=== PATIENT | female | born 1960 | race Caucasian/White ===

== ENCOUNTER 2016-04-20 09:00 | Outpatient (RCR) | payer OTHER ==
[~2016-04-20 09:00] MED LIST: ADVAIR 250/28 DISKUS IH; ALBUTEROL0.09 MG/A1 IH; ALBUTEROL0.83 MG/ML IH; ASPI325T6 PO; ASPIRIN 32325 MG/TA1 PO; ASPIRIN 32325 MG/TAB PO; B-12500 MCG; BACTRIM DS 8001 TAB PO; BUDESONIDE1 POW; CALAN120 MG PO; CELEBREX 200MG200 MG PO; CIPRO 500MG TA500 MG PO; CIPRO HC OTIC S10 ML OT; CLEOCIN HC150 MG/CAP PO; CODIENE; CRESTOR5 MG PO; CYMBALTA; DILAUDID 2MG TAB2 MG PO; DIOVAN PO; ELITE MAGNESIUM1 TAB PO; EPIPEN1 MG/ML MR; ESTRACE0.1 MG/GM VG; FERROUS SU325 MG/TAB PO; FISH OIL CONC1000 MG PO; FLAXSEED OIL1000 MG PO; FLEXERIL 1010 MG/TAB PO; FLOVENT 110MCG7.9 GM; FLOVENT 110MCG7.9 GM IH; FOLIC ACID 11 MG/TA1 PO; FOLIC ACID0.4 MG PO; GLIPIZIDE XL10 MG PO; GLUCOPHAGE1000 MG PO; GLUCOTROL10 MG PO; HCTZ 25MG TAB25 MG PO; HCTZ 25MG25 MG PO; HCTZ12.5TAB PO; IMITREX 25MG TA25 MG PO; INVOKAMET1 PO; KEFLEX500 MG PO; LAMISIL1% TP; LASIX 20MG TABL20 MG PO; LEVAQUIN 5500 MG/TA1 PO; LIDODERM 5% PATC1 EA TP; LIPITOR20 MG PO; LORTAB 5/500 501 TAB PO; LORTAB 7.5/5001 TAB PO; MACRODANTIN50 MG/CA1 PO; MAG-OX 400400 MG/TAB PO; MASON NATURAL2000 IU PO; METFORMIN500 MG PO; METHOCARBAMOL500 MG PO; MOBIC 7.5MG7.5 MG PO; MULTIPLE VITAMI1 TAB PO; MULTIVITAMIN FO1 CAP PO; MVI; NAPROSYN500 MG PO; NEURONTIN100 MG/CAP PO; NORCO 325 MG-51 TAB PO; NORCO 325 MG-7.1 TAB PO; ONGLYZA5 MG PO; PERCOCET 325 MG1 TA2 PO; PHENERGAN 25 TA25 MG PO; PHENERGAN25 MG RC; PREDNISONE 5MG5 MG PO; PREDNISONE10 MG PO; PREDNISONE20 MG PO; PRILOSEC 20MG20 MG PO; PRILOSEC20 MG PO; PROMETH; SAVELLA50 MG PO; SEPTRA DS 8001 TAB PO; ULTRAM 50MG TAB50 MG PO; ULTRAM100 MG PO; ULTRAM50 MG; VALIUM 5MG T5 MG/TAB PO; VALIUM2 MG PO; VERAPAMIL120 MG/TA1 PO; VITAMIN C500 MG PO; VITAMIN D32000 IU PO; ZITHROMAX Z PA250 MG PO; ZOFRAN 4MG T4 MG/TAB PO; ZOFRAN ODT8 MG PO; ZOFRAN4 M1 PO; ZOLOFT25 MG PO
== END 2016-04-25 11:35 | disposition home or self-care (01) ==
LOC: WSPT 09:00
DX: Z96.642 Presence of left artificial hip joint (principal)

== ENCOUNTER → 2016-05-18 | Outpatient (CLI) | payer OTHER | LOC: MC.RAD 09:00 | DX: Z12.31 Encounter for screening mammogram for malignant neoplasm of breast (principal) ==

== ENCOUNTER → 2017-06-04 | Outpatient (CLI) | payer MEDICARE, OTHER | LOC: MC.RAD 08:00 | DX: Z12.31 Encounter for screening mammogram for malignant neoplasm of breast (principal) ==

== ENCOUNTER 2017-12-30 16:04 | Inpatient (IN) | payer MEDICARE, OTHER ==
[~2017-12-30] VITALS: Ht 165.1 cm; Wt 114.6 kg
[2018-02-03] VITALS (9 sets, daily range): BP systolic 97–129; BP diastolic 49–85; PULSE 52–66; TEMP 97.4–98.6
[2018-02-03 09:54] LABS: COLLECTION METHOD CATHETER
[2018-02-03 10:00] LABS: PH 6 (5-8); SQUAMOUS EPITHELIAL 0-2 /hpf; URINE APPEARANCE Clear; URINE BACTERIA None Seen /hpf; URINE BILIRUBIN Negative (NEGATIVE); URINE BLOOD Negative (NEGATIVE); URINE COLOR Colorless; URINE GLUCOSE Negative (NEGATIVE); URINE KETONE Negative (NEGATIVE); URINE LEUKOCYTE ESTERASE Negative (NEGATIVE); URINE NITRATE Negative (NEGATIVE); URINE PROTEIN(semi-quant) Negative (NEGATIVE); URINE RBC 0-2 /hpf; URINE UROBILINOGEN Negative (NEGATIVE); URINE WBC 0-2 /hpf
[2018-02-03] MEDS ORDERED: HUMIRA40 MG/0.8 SQ (11:10)
[2018-02-03] MEDS ORDERED: CYMBALTA 60MG60 MG PO (11:12)
[2018-02-04] VITALS (7 sets, daily range): BP systolic 80–114; BP diastolic 45–59; PULSE 65–76; TEMP 97.7–98.9
[2018-02-04] MEDS ORDERED: ASPIRIN 32325 MG/TA1 PO (06:31)
[2018-02-04] MEDS ORDERED: NORCO 325 MG-7.1 TAB PO (06:32)
[2018-02-04 06:44] LABS: HEMOGLOBIN 11.6 g/dl (12.5-16.0)
[2018-02-05 01:33] VITALS: BP 107/56; PULSE 67; TEMP 98.2
[2018-02-05 05:58] VITALS: BP 101/55; PULSE 70; TEMP 98.8
[2018-02-05 07:33] LABS: HEMOGLOBIN 11.4 g/dl (12.5-16.0)
[2018-02-05 08:00] VITALS: BP 97/46; PULSE 72; TEMP 98.6
[2018-02-05 11:07] VITALS: BP 113/54; PULSE 85; TEMP 98.8
== END 2018-02-05 14:05 | disposition home or self-care (01) | DRG 470 ==
LOC: JCC 02-03 08:57
PROVIDERS: Orthopaedic Surgery; Physician Assistant
PROC: 0SR902A Replacement of Right Hip Joint with Metal on Polyethylene Synthetic Substitute, Uncemented, Open Approach (ICD-10-PCS; principal; 2018-02-03 11:55)
DX: M16.11 Unilateral primary osteoarthritis, right hip (principal); Z68.41 Body mass index [BMI] 40.0-44.9, adult; M06.9 Rheumatoid arthritis, unspecified; M79.7 Fibromyalgia; E11.9 Type 2 diabetes mellitus without complications; J45.909 Unspecified asthma, uncomplicated; I10 Essential (primary) hypertension; Z87.891 Personal history of nicotine dependence; E66.8 Other obesity
CPT/HCPCS: A9284; C1713; C1776; J0690; J1885; J2250; J2274; J2704; J2765; J3010; J7030; J7120

== ENCOUNTER 2018-03-16 14:23 | Emergency (ER) | payer MEDICARE, OTHER ==
[~2018-03-16] VITALS: Ht 165.1 cm; Wt 113.6 kg
[~2018-03-16 14:23] MED LIST changes: +CYMBALTA 60MG60 MG PO; +HUMIRA40 MG/0.8 SQ
[2018-03-16] MEDS ORDERED: ACTOS 15MG TAB15 MG PO (14:39)
[2018-03-16] MEDS ORDERED: LASIX 20MG TABL20 MG PO (14:40)
[2018-03-16 14:57] VITALS: TEMP 98.3
[2018-03-16] MEDS ORDERED: CEPHALEXIN500 M1 PO (15:07)
[2018-03-16 16:07] VITALS: BP 107/84; PULSE 67
== END 2018-03-16 16:11 | disposition home or self-care (01) ==
LOC: COL.ER 14:23
DX: T81.40XA Infection following a procedure, unspecified, initial encounter (principal); E11.9 Type 2 diabetes mellitus without complications; E78.5 Hyperlipidemia, unspecified; I10 Essential (primary) hypertension; Z79.82 Long term (current) use of aspirin; Z79.84 Long term (current) use of oral hypoglycemic drugs; Z98.890 Other specified postprocedural states

== ENCOUNTER 2018-05-01 13:30 | Outpatient (RCR) | payer MEDICARE, OTHER ==
[~2018-05-01 13:30] MED LIST changes: +ACTOS 15MG TAB15 MG PO; +CEPHALEXIN500 M1 PO
== END 2018-05-08 | disposition still patient (30) ==
LOC: WSPT
DX: Z47.1 Aftercare following joint replacement surgery (principal); Z96.641 Presence of right artificial hip joint
CPT/HCPCS: G8978-GP; G8979-GP

== ENCOUNTER → 2018-07-08 | Outpatient (CLI) | payer MEDICARE, OTHER | LOC: MC.RAD 06-06 13:15 | DX: Z12.31 Encounter for screening mammogram for malignant neoplasm of breast (principal) ==

== ENCOUNTER 2018-11-14 12:59 | Emergency (ER) | payer MEDICARE, OTHER ==
[~2018-11-14] VITALS: Ht 165.1 cm; Wt 132.1 kg
[2018-11-14 13:42] VITALS: TEMP 98.8
[2018-11-14] MEDS ORDERED: FLEXERIL 1010 MG/TAB PO (16:27)
[2018-11-14 16:35] VITALS: BP 120/61; PULSE 63
== END 2018-11-14 16:40 | disposition home or self-care (01) ==
LOC: COL.ER 12:59
DX: M54.6 Pain in thoracic spine (principal); M79.7 Fibromyalgia; E78.5 Hyperlipidemia, unspecified; E66.9 Obesity, unspecified; Z90.710 Acquired absence of both cervix and uterus; Z79.82 Long term (current) use of aspirin; Z95.9 Presence of cardiac and vascular implant and graft, unspecified; Z68.42 Body mass index [BMI] 45.0-49.9, adult
CPT/HCPCS: J1885; J2270; J2405

== ENCOUNTER → 2018-11-25 | Outpatient (CLI) | payer MEDICARE, OTHER | LOC: COL.VAS 09:04 | DX: M79.605 Pain in left leg (principal) ==

== ENCOUNTER → 2019-07-22 | Outpatient (CLI) | payer MEDICARE, OTHER | LOC: MC.RAD 17:45 | DX: Z12.31 Encounter for screening mammogram for malignant neoplasm of breast (principal) ==

== ENCOUNTER 2019-08-07 06:37 | Day surgery (SDC) | payer MEDICARE, OTHER ==
[~2019-08-07] VITALS: Ht 165.1 cm; Wt 134.5 kg
[~2019-08-07 06:37] MED LIST changes: -ACTOS 15MG TAB15 MG PO; +ACTOS 45MG45 MG/TAB PO; -MAG-OX 400400 MG/TAB PO; +MAGNESIUM250 M1 PO; -VITAMIN D32000 IU PO; +VITAMIND3 5000 PO
[2019-08-07] MEDS ORDERED: CLEOCIN HCL300 MG PO (07:08)
[2019-08-07] MEDS ORDERED: ASPIRIN 81M81 MG/TA2 PO (07:10)
[2019-08-07] MEDS ORDERED: LIPITOR20 MG PO (07:11)
[2019-08-07] MEDS ORDERED: LEXAPRO20 MG PO (07:15)
[2019-08-07] MEDS ORDERED: VITAMINE200 PO (07:16)
[2019-08-07] MEDS ORDERED: PHARMASSURE ZIN50 MG PO (07:16)
[2019-08-07] MEDS ORDERED: TURMERIC500 MG PO (07:16)
[2019-08-07] MEDS ORDERED: NATURE'S BLEND600 M2 PO (07:17)
[2019-08-07] MEDS ORDERED: B-12 500 MCG PO (07:17)
[2019-08-07 07:30] VITALS: BP 123/66; PULSE 64; TEMP 97.7
--- NOTE | 2019-08-07 08:10 | NUR ---
Dr Bacon into see patient's spouse at this time to go over procedure results.
[2019-08-07 08:15] VITALS: BP 106/60; PULSE 61; TEMP 98.2
--- NOTE | 2019-08-07 08:15 | NUR ---
Patient arrives back to [facility] [place], denies pain or nausea. Patient ambulated with standby assist x2 from cart to chair without any difficulties or complications. Patient's spouse at bedside. Patient monitor applied, vitals stable.
--- NOTE | 2019-08-07 08:20 | NUR ---
Patient given water and muffins at this time.
[2019-08-07 08:30] VITALS: BP 112/68; PULSE 66
--- NOTE | 2019-08-07 08:30 | NUR ---
Patient tolerating food and drink without any nausea. Vitals stable.
[2019-08-07 08:45] VITALS: BP 103/62; PULSE 56
--- NOTE | 2019-08-07 08:45 | NUR ---
Patient reports she feels good and is ready to go home. Vitals stable.
--- NOTE | 2019-08-07 08:55 | NUR ---
Dismissal instructions gone over with patient and patient's spouse. Both verbalize understanding and all questions answered.
--- NOTE | 2019-08-07 09:05 | NUR ---
Patient discharged to home private vehicle via wheelchair. Patient's spouse is driving. Patient and spouse leave thanking staff for services.
== END 2019-08-07 09:05 | disposition home or self-care (01) ==
LOC: SDCO 06:37
DX: Z12.11 Encounter for screening for malignant neoplasm of colon (principal); E11.9 Type 2 diabetes mellitus without complications; I10 Essential (primary) hypertension; E78.00 Pure hypercholesterolemia, unspecified; G47.33 Obstructive sleep apnea (adult) (pediatric); J45.909 Unspecified asthma, uncomplicated; Z79.4 Long term (current) use of insulin; Z79.899 Other long term (current) drug therapy; Z79.82 Long term (current) use of aspirin; Z88.0 Allergy status to penicillin; Z88.8 Allergy status to other drugs, medicaments and biological substances; M06.9 Rheumatoid arthritis, unspecified; E66.01 Morbid (severe) obesity due to excess calories; Z68.42 Body mass index [BMI] 45.0-49.9, adult; Z82.3 Family history of stroke; Z82.49 Family history of ischemic heart disease and other diseases of the circulatory system; Z88.1 Allergy status to other antibiotic agents; Z88.2 Allergy status to sulfonamides; Z87.891 Personal history of nicotine dependence; F32.9 Major depressive disorder, single episode, unspecified; M79.7 Fibromyalgia
CPT/HCPCS: J2704; J7030

== ENCOUNTER 2019-11-27 23:50 | Emergency (ER) | payer MEDICARE, OTHER ==
[~2019-11-27] VITALS: Ht 165.1 cm; Wt 140.9 kg
[~2019-11-27 23:50] MED LIST changes: +ASPIRIN 81M81 MG/TA2 PO; +B-12 500 MCG PO; +CLEOCIN HCL300 MG PO; +LEXAPRO20 MG PO; +NATURE'S BLEND600 M2 PO; +PHARMASSURE ZIN50 MG PO; +TURMERIC500 MG PO; +VITAMINE200 PO
[2019-11-27 23:55] VITALS: BP 126/80; TEMP 96.4
[2019-11-28] MEDS ORDERED: FLEXERIL5 MG PO (01:08)
[2019-11-28 01:15] VITALS: PULSE 78
== END 2019-11-28 01:15 | disposition home or self-care (01) ==
LOC: COL.ER 23:50
DX: S96.912A Strain of unspecified muscle and tendon at ankle and foot level, left foot, initial encounter (principal); I10 Essential (primary) hypertension; E11.9 Type 2 diabetes mellitus without complications; Z88.0 Allergy status to penicillin; Z88.2 Allergy status to sulfonamides; Z88.6 Allergy status to analgesic agent; Z88.1 Allergy status to other antibiotic agents; Z79.84 Long term (current) use of oral hypoglycemic drugs; Z79.82 Long term (current) use of aspirin; W19.XXXA Unspecified fall, initial encounter; Y92.009 Unspecified place in unspecified non-institutional (private) residence as the place of occurrence of the external cause

== ENCOUNTER 2020-03-17 13:01 | Outpatient (RCR) | payer MEDICARE, OTHER ==
[~2020-03-17 13:01] MED LIST changes: +COREG 3.123.125 MG/T PO; +FLEXERIL5 MG PO; +LASIX 40MG TABL40 MG PO; +OXYGEN; +PROAIR HFA0.09 MG/AC IH
[2020-06-08] MEDS ORDERED: MASON NATURAL2000 IU PO (08:44)
[2020-06-08] MEDS ORDERED: NATURAL MAGNES200 MG PO (08:50)
[2020-06-08] MEDS ORDERED: ACTOS 45MG45 MG/TAB PO (08:56)
[2020-06-08] MEDS ORDERED: ALDACTONE 25MG25 M1 PO (08:57)
[2020-06-08] MEDS ORDERED: ANORO IH (08:58)
[2020-06-10] MEDS ORDERED: ZITHROMAX Z PA250 MG PO (10:33)
[2020-06-10] MEDS ORDERED: PREDNISONE50 MG PO (10:50)
== END 2020-06-15 | disposition home or self-care (01) ==
LOC: WSPT
DX: M19.90 Unspecified osteoarthritis, unspecified site (principal); E66.9 Obesity, unspecified; I50.9 Heart failure, unspecified

== ENCOUNTER → 2020-05-19 | Outpatient (CLI) | payer MEDICARE, OTHER ==
[~2020-05-19] MED LIST changes: +ADULT MULTIVIT1 EACH PO; +ALDACTONE 25MG25 M1 PO; +ANORO IH; +FOLIC ACID 40400 MCG; +GLUCOPHAGE XR500 M1 PO; +LEADER CLE17 GM/Dose PO; +MYRBETR50MG PO; +NATURAL IRON65 MG; +NATURAL MAGNES200 MG PO; +ORENCIA CL125 MG/1 M SQ; +PREDNISONE50 MG PO; +PRIL40 PO; +PROTONIX 40MG T40 MG PO; +TOUJEO300 U/ML SQ
[2020-05-19 13:05] LABS: CALCIUM 9.3 mg/dL (8.4-10.2); CREATININE, serum 0.53 (0.52-1.25); POTASSIUM 4.2 mmol/L (3.4-5.0)
== END ==
LOC: COL.RAD 12:13
PROVIDERS: Physician Assistant
DX: R04.2 Hemoptysis (principal); E11.9 Type 2 diabetes mellitus without complications
CPT/HCPCS: Q9967

== ENCOUNTER 2020-06-08 07:04 | Day surgery (SDC) | payer MEDICARE, OTHER ==
[~2020-06-08] VITALS: Ht 165.1 cm; Wt 151.4 kg
[~2020-06-08 07:04] MED LIST changes: -ADULT MULTIVIT1 EACH PO; -ALDACTONE 25MG25 M1 PO; -ANORO IH; -FOLIC ACID 40400 MCG; -GLUCOPHAGE XR500 M1 PO; -LEADER CLE17 GM/Dose PO; -MYRBETR50MG PO; -NATURAL IRON65 MG; -NATURAL MAGNES200 MG PO; -ORENCIA CL125 MG/1 M SQ; -PREDNISONE50 MG PO; -PRIL40 PO; -PROTONIX 40MG T40 MG PO; -TOUJEO300 U/ML SQ
[2020-06-08] MEDS ORDERED: MASON NATURAL2000 IU PO (08:44)
[2020-06-08] MEDS ORDERED: NATURAL MAGNES200 MG PO (08:50)
[2020-06-08] MEDS ORDERED: ACTOS 45MG45 MG/TAB PO (08:56)
[2020-06-08] MEDS ORDERED: ALDACTONE 25MG25 M1 PO (08:57)
[2020-06-08] MEDS ORDERED: ANORO IH (08:58)
[2020-06-08 09:15] VITALS: BP 91/48; PULSE 58; TEMP 98.5
[2020-06-08 09:30] VITALS: BP 93/41; PULSE 56
[2020-06-08 09:45] VITALS: BP 99/51; PULSE 58
--- NOTE | 2020-06-08 11:05 | NUR ---
0915 Pt returns from Endo procedure via cart and this RN. Pt on O2 2L via NC. Pt returns to [facility] [place] [address]. Monitors on and alarms set. Call light within reach. Pt's present in room. Pt requests water only. This brought for pt. Pt alert and oriented and stating "I'm ready to go." 0930 Pt taking drink well. No complaints voiced by pt. 0957 Pt ambulates to restroom with RN assist. 1000 Pt returns to [place] [id number] having voided. Pt had soiled pants due to coughing. Pt asks to travel home and return with replacement pants and the hospital didn't have appropriate pants for the pt. 1030 Discharge instructions reviewed in detail with pt. Review lab values from previous visit. Handed to pt are a thank you card and discharge instructions. All questions answered to pt's satisfaction. 1044 Pt's returns with pants, and pt dresses self with assisting. 1105 Transfer pt out of hospital via wheelchair and this RN assist to private vehicle driven by .
[2020-06-08 14:18] VITALS: BP 133/86; PULSE 60; TEMP 98
[2020-06-08 18:29] VITALS: BP 86/50; PULSE 56
== END 2020-06-08 11:05 | disposition home or self-care (01) ==
LOC: SDCO 07:04
DX: R04.2 Hemoptysis (principal); R09.02 Hypoxemia; J44.9 Chronic obstructive pulmonary disease, unspecified; E11.9 Type 2 diabetes mellitus without complications; I11.0 Hypertensive heart disease with heart failure; I50.9 Heart failure, unspecified; G47.33 Obstructive sleep apnea (adult) (pediatric); M79.7 Fibromyalgia; E78.5 Hyperlipidemia, unspecified; M19.90 Unspecified osteoarthritis, unspecified site; F32.9 Major depressive disorder, single episode, unspecified; Z99.89 Dependence on other enabling machines and devices; Z20.822 Contact with and (suspected) exposure to COVID-19; Z79.84 Long term (current) use of oral hypoglycemic drugs; Z88.8 Allergy status to other drugs, medicaments and biological substances; Z88.2 Allergy status to sulfonamides; Z88.0 Allergy status to penicillin; Z88.1 Allergy status to other antibiotic agents; Z87.891 Personal history of nicotine dependence; Z79.899 Other long term (current) drug therapy; Z79.82 Long term (current) use of aspirin
CPT/HCPCS: J2704; J7030

== ENCOUNTER 2020-06-10 07:20 | Emergency (ER) | payer MEDICARE, OTHER ==
[~2020-06-10] VITALS: Ht 167.6 cm; Wt 150.0 kg
[~2020-06-10 07:20] MED LIST changes: +ALDACTONE 25MG25 M1 PO; +ANORO IH; +NATURAL MAGNES200 MG PO
[2020-06-10 07:29] VITALS: TEMP 97.5
[2020-06-10 08:20] LABS: BASO % 0.6 % (0.0-2.0); EOS # 0.2 (0.0-0.7); EOS % 4.1 % (0-4.0); GRAN % 62.7 % (42.2-75.2); HEMATOCRIT 45.3 % (37.0-47.0); HEMOGLOBIN 13.6 g/dl (12.5-16.0); LYMPH # 1.1 (1.2-3.4); LYMPH % 22.3 % (20.0-51.0); MEAN CELL VOLUME 93 fl (80.0-100.0); MEAN CORPUSCULAR HEMOGLOBIN 28 pg (27.0-31.0); MEAN CORPUSCULAR HGB CONC 30 g/dl (33.0-37.0); MEAN PLATELET VOLUME 11.1 fl (7.4-10.4); MONO # 0.5 (0.1-0.6); MONO % 9.7 % (1.7-9.3); PLATELET COUNT 207 K/mm3 (130-400); RED BLOOD COUNT 4.87 M/mm3 (4.10-5.30)
[2020-06-10 08:35] LABS: ALANINE AMINOTRANSFERASE 24 U/L (4-34); ALBUMIN 4.1 gm/dL (3.5-5.0); ALKALINE PHOSPHATASE 66 U/L (50-136); ANION GAP 7 mmol/L (7-16); AST,SGOT 25 U/L (15-37); BILIRUBIN,TOTAL 0.6 mg/dL (0.0-1.0); BLOOD UREA NITROGEN 11 mg/dL (7-17); CALCIUM 8.9 mg/dL (8.4-10.2); CARBON DIOXIDE 31 mmol/L (22-30); CHLORIDE 102 mmol/L (98-107); CREATININE, serum 0.45 (0.52-1.25); GLUCOSE 151 mg/dL (74-106); LIPASE 121 U/L (23-300); POTASSIUM 4.3 mmol/L (3.4-5.0); SODIUM 140 mmol/L (137-145)
[2020-06-10 08:48] LABS: TROPONIN-I < 0.012 ng/mL (0.000-0.035)
[2020-06-10 09:15] LABS: COLLECTION METHOD CLEAN CATCH
[2020-06-10 09:22] LABS: MUCOUS Present /lpf; PH 6 (5-8); SQUAMOUS EPITHELIAL 0-2 /hpf; URINE APPEARANCE Clear; URINE BACTERIA None Seen /hpf; URINE BILIRUBIN Negative (NEGATIVE); URINE BLOOD Negative (NEGATIVE); URINE COLOR Yellow; URINE GLUCOSE Negative (NEGATIVE); URINE KETONE Negative (NEGATIVE); URINE LEUKOCYTE ESTERASE Negative (NEGATIVE); URINE NITRATE Negative (NEGATIVE); URINE PROTEIN(semi-quant) Negative (NEGATIVE); URINE RBC None Seen /hpf; URINE UROBILINOGEN Negative (NEGATIVE)
[2020-06-10] MEDS ORDERED: ZITHROMAX Z PA250 MG PO (10:33)
[2020-06-10 10:49] VITALS: BP 131/62; PULSE 60
[2020-06-10] MEDS ORDERED: PREDNISONE50 MG PO (10:50)
== END 2020-06-10 10:54 | disposition home or self-care (01) ==
LOC: COL.ER 07:20
PROVIDERS: Emergency Medicine
DX: J96.01 Acute respiratory failure with hypoxia (principal); R55 Syncope and collapse; R04.2 Hemoptysis; E11.9 Type 2 diabetes mellitus without complications; I10 Essential (primary) hypertension; E78.5 Hyperlipidemia, unspecified; F32.9 Major depressive disorder, single episode, unspecified; Z88.0 Allergy status to penicillin; Z88.2 Allergy status to sulfonamides; Z88.8 Allergy status to other drugs, medicaments and biological substances; Z88.1 Allergy status to other antibiotic agents; Z79.84 Long term (current) use of oral hypoglycemic drugs
CPT/HCPCS: Q9967

== ENCOUNTER → 2020-06-29 | Outpatient (CLI) | payer MEDICARE, OTHER ==
[~2020-06-29] MED LIST changes: +ADULT MULTIVIT1 EACH PO; +FOLIC ACID 40400 MCG; +GLUCOPHAGE XR500 M1 PO; +LEADER CLE17 GM/Dose PO; +MYRBETR50MG PO; +NATURAL IRON65 MG; +ORENCIA CL125 MG/1 M SQ; +PREDNISONE50 MG PO; +PRIL40 PO; +PROTONIX 40MG T40 MG PO; +TOUJEO300 U/ML SQ
== END ==
LOC: COL.RAD 12:23
DX: R04.2 Hemoptysis (principal)
CPT/HCPCS: Q9967

== ENCOUNTER 2020-07-14 12:00 | Outpatient (RCR) | payer MEDICARE, OTHER ==
[~2020-07-14 12:00] MED LIST changes: -ADULT MULTIVIT1 EACH PO; -FOLIC ACID 40400 MCG; -GLUCOPHAGE XR500 M1 PO; -LEADER CLE17 GM/Dose PO; -MYRBETR50MG PO; -NATURAL IRON65 MG; -ORENCIA CL125 MG/1 M SQ; -PRIL40 PO; -PROTONIX 40MG T40 MG PO; -TOUJEO300 U/ML SQ
== END 2020-07-15 09:46 | disposition home or self-care (01) ==
LOC: WSPT 12:00
DX: I50.9 Heart failure, unspecified (principal); E66.9 Obesity, unspecified; M19.90 Unspecified osteoarthritis, unspecified site

== ENCOUNTER 2020-08-17 08:36 | Outpatient (RCR) | payer MEDICARE, OTHER | END 2020-08-22 11:51 | disposition home or self-care (01) | LOC: WSPT 08:36 | DX: M17.11 Unilateral primary osteoarthritis, right knee (principal) ==

== ENCOUNTER → 2020-08-29 | Outpatient (CLI) | payer MEDICARE, OTHER ==
[~2020-08-29] MED LIST changes: +ADULT MULTIVIT1 EACH PO; +FOLIC ACID 40400 MCG; +GLUCOPHAGE XR500 M1 PO; +LEADER CLE17 GM/Dose PO; +MYRBETR50MG PO; +NATURAL IRON65 MG; +ORENCIA CL125 MG/1 M SQ; +PRIL40 PO; +PROTONIX 40MG T40 MG PO; +TOUJEO300 U/ML SQ
== END ==
LOC: COL.VAS 10:00
DX: Z13.6 Encounter for screening for cardiovascular disorders (principal); M79.661 Pain in right lower leg; M79.89 Other specified soft tissue disorders; Z96.651 Presence of right artificial knee joint

== ENCOUNTER 2020-08-30 11:37 | Emergency (ER) | payer MEDICARE, OTHER ==
[~2020-08-30] VITALS: Ht 165.1 cm; Wt 154.1 kg
[~2020-08-30 11:37] MED LIST changes: -ADULT MULTIVIT1 EACH PO; -FOLIC ACID 40400 MCG; -GLUCOPHAGE XR500 M1 PO; -LEADER CLE17 GM/Dose PO; -MYRBETR50MG PO; -NATURAL IRON65 MG; -ORENCIA CL125 MG/1 M SQ; -PRIL40 PO; -PROTONIX 40MG T40 MG PO; -TOUJEO300 U/ML SQ
[2020-08-30 11:59] VITALS: TEMP 98.4
[2020-08-30] MEDS ORDERED: NATURAL IRON65 MG (12:14)
[2020-08-30] MEDS ORDERED: FOLIC ACID 40400 MCG (12:14)
[2020-08-30 12:33] LABS: BASO # 0.1 (0.0-0.2); EOS # 0.5 (0.0-0.7); EOS % 7.8 % (0-4.0); GRAN # 3.7 (1.4-6.5); GRAN % 63.6 % (42.2-75.2); HEMATOCRIT 38.4 % (37.0-47.0); HEMOGLOBIN 12.1 g/dl (12.5-16.0); LYMPH # 1.2 (1.2-3.4); LYMPH % 19.6 % (20.0-51.0); MEAN CELL VOLUME 91 fl (80.0-100.0); MEAN CORPUSCULAR HEMOGLOBIN 29 pg (27.0-31.0); MEAN CORPUSCULAR HGB CONC 32 g/dl (33.0-37.0); MEAN PLATELET VOLUME 10.6 fl (7.4-10.4); MONO # 0.4 (0.1-0.6); MONO % 7.5 % (1.7-9.3); PLATELET COUNT 276 K/mm3 (130-400); RED BLOOD COUNT 4.24 M/mm3 (4.10-5.30); REDCELL DISTRIBUTION WIDTH-CV 16.3 % (11.5-14.5)
[2020-08-30 12:44] LABS: INR 1.2 (0.8-3.0); PROTHROMBIN TIME 13.1 SECONDS (9.7-12.8)
[2020-08-30 12:46] LABS: ALBUMIN 3.7 gm/dL (3.5-5.0); CALCIUM 9.1 mg/dL (8.4-10.2); CREATININE, serum 0.39 (0.52-1.25); POTASSIUM 3.7 mmol/L (3.4-5.0); TOTAL PROTEIN 7.2 gm/dL (6.4-8.2)
[2020-08-30 12:57] LABS: TROPONIN-I 0.012 ng/mL (0.000-0.035)
--- NOTE | 2020-08-30 14:44 | NUR ---
[employer] responded to consult in the ED and met with patient and her , Ming. Patient lives in [place] with Ming and sees Dr. Patricio for primary care. Patient reports she had knee surgery last week and was discharged home with outpatient PT set up at [facility] on [address]. Patient expressed frustration as she had appointments with Dr. Patricio and Dr. Gomez today and she advised that they wanted her to come into the ED to have fluid removed. Patient states she has congestive heart failure and knows that she has too much fluid. Patient expressed frustration that she will not be admitted. SW asked patient if she felt comfortable returning home. Patient states no but also stated she is not going to any facility. Patient states she has everything she needs at home and her , Ming is her nurse. SW offered Home Health services however patient declined stating that she feels she can care for herself at home with the help of her . Patient is wearing oxygen and advised she has home oxygen through [facility]. Patient again states if they won't admit her she is ready to just go home. MARCELLE collaborated the above to Vanessa RECINOS.
[2020-08-30] MEDS ORDERED: CEPHALEXIN500 M1 PO (14:49)
[2020-08-30 14:55] VITALS: BP 118/58; PULSE 78
== END 2020-08-30 15:12 | disposition home or self-care (01) ==
LOC: COL.ER 11:37
PROVIDERS: Family Medicine
DX: J96.01 Acute respiratory failure with hypoxia (principal); R55 Syncope and collapse; M79.606 Pain in leg, unspecified; I10 Essential (primary) hypertension; E78.5 Hyperlipidemia, unspecified; Z79.84 Long term (current) use of oral hypoglycemic drugs; Z79.899 Other long term (current) drug therapy

== ENCOUNTER 2020-09-01 12:39 | Emergency (ER) | payer MEDICARE, OTHER ==
[~2020-09-01] VITALS: Ht 160 cm; Wt 150.0 kg
[~2020-09-01 12:39] MED LIST changes: +FOLIC ACID 40400 MCG; +NATURAL IRON65 MG
[2020-09-01 12:43] VITALS: TEMP 97.7
[2020-09-01 13:19] LABS: BASO # 0.1 (0.0-0.2); BASO % 0.9 % (0.0-2.0); EOS # 0.5 (0.0-0.7); EOS % 8.1 % (0-4.0); GRAN # 4.1 (1.4-6.5); GRAN % 64.3 % (42.2-75.2); HEMATOCRIT 38.3 % (37.0-47.0); HEMOGLOBIN 11.9 g/dl (12.5-16.0); LYMPH # 1.2 (1.2-3.4); LYMPH % 18.8 % (20.0-51.0); MEAN CELL VOLUME 91 fl (80.0-100.0); MEAN CORPUSCULAR HEMOGLOBIN 28 pg (27.0-31.0); MEAN CORPUSCULAR HGB CONC 31 g/dl (33.0-37.0); MEAN PLATELET VOLUME 10.4 fl (7.4-10.4); MONO # 0.5 (0.1-0.6); MONO % 7.4 % (1.7-9.3); PLATELET COUNT 284 K/mm3 (130-400); REDCELL DISTRIBUTION WIDTH-CV 16.4 % (11.5-14.5)
[2020-09-01 13:31] LABS: COLLECTION METHOD CLEAN CATCH
[2020-09-01 13:32] LABS: ALANINE AMINOTRANSFERASE 35 U/L (4-34); ALBUMIN 3.8 gm/dL (3.5-5.0); ALKALINE PHOSPHATASE 76 U/L (50-136); ANION GAP 5 mmol/L (7-16); AST,SGOT 59 U/L (15-37); BILIRUBIN,TOTAL 0.9 mg/dL (0.0-1.0); BLOOD UREA NITROGEN 11 mg/dL (7-17); CARBON DIOXIDE 33 mmol/L (22-30); CHLORIDE 98 mmol/L (98-107); CREATININE, serum 0.41 (0.52-1.25); GLUCOSE 276 mg/dL (74-106); SODIUM 136 mmol/L (137-145); TOTAL PROTEIN 7.4 gm/dL (6.4-8.2)
[2020-09-01 13:36] LABS: MUCOUS Present /lpf; PH 7 (5-8); SQUAMOUS EPITHELIAL 0-2 /hpf; URINE APPEARANCE Hazy; URINE BACTERIA None Seen /hpf; URINE BILIRUBIN Negative (NEGATIVE); URINE BLOOD Negative (NEGATIVE); URINE COLOR Yellow; URINE GLUCOSE 2+ (NEGATIVE); URINE KETONE Negative (NEGATIVE); URINE LEUKOCYTE ESTERASE Negative (NEGATIVE); URINE NITRATE Negative (NEGATIVE); URINE PROTEIN(semi-quant) Negative (NEGATIVE); URINE RBC 0-2 /hpf; URINE UROBILINOGEN Negative (NEGATIVE)
[2020-09-01 13:44] LABS: TROPONIN-I < 0.012 ng/mL (0.000-0.035)
[2020-09-01 14:29] LABS: LIPASE 115 U/L (23-300)
[2020-09-01 16:01] VITALS: BP 163/94; PULSE 88
== END 2020-09-01 16:20 | disposition home or self-care (01) ==
LOC: COL.ER 12:39
PROVIDERS: Emergency Medicine
DX: J96.01 Acute respiratory failure with hypoxia (principal); M79.604 Pain in right leg; E11.9 Type 2 diabetes mellitus without complications; I10 Essential (primary) hypertension; E78.5 Hyperlipidemia, unspecified; Z88.8 Allergy status to other drugs, medicaments and biological substances; Z88.0 Allergy status to penicillin; Z88.1 Allergy status to other antibiotic agents; Z79.84 Long term (current) use of oral hypoglycemic drugs; Z79.899 Other long term (current) drug therapy; Z20.822 Contact with and (suspected) exposure to COVID-19

== ENCOUNTER 2020-10-30 12:26 | Inpatient (IN) | payer MEDICARE, OTHER ==
[~2020-10-30] VITALS: Ht 165.1 cm; Wt 142.7 kg
[2020-10-30] MEDS ORDERED: LASIX 20MG TABL20 MG PO (12:46)
[2020-10-30] MEDS ORDERED: ASPIRIN 81M81 MG/TA2 PO (13:10)
[2020-10-30 13:51] LABS: BASO % 0.5 % (0.0-2.0); EOS # 0.2 (0.0-0.7); EOS % 3.1 % (0-4.0); GRAN # 4.5 (1.4-6.5); HEMATOCRIT 45.9 % (37.0-47.0); HEMOGLOBIN 14.6 g/dl (12.5-16.0); LYMPH # 0.9 (1.2-3.4); LYMPH % 14.5 % (20.0-51.0); MEAN CELL VOLUME 90 fl (80.0-100.0); MEAN CORPUSCULAR HEMOGLOBIN 29 pg (27.0-31.0); MEAN CORPUSCULAR HGB CONC 32 g/dl (33.0-37.0); MEAN PLATELET VOLUME 11.9 fl (7.4-10.4); MONO # 0.5 (0.1-0.6); MONO % 7.6 % (1.7-9.3); PLATELET COUNT 242 K/mm3 (130-400); RED BLOOD COUNT 5.09 M/mm3 (4.10-5.30); REDCELL DISTRIBUTION WIDTH-CV 15.3 % (11.5-14.5)
[2020-10-30 13:58] LABS: ALANINE AMINOTRANSFERASE 84 U/L (4-34); ALBUMIN 4.2 gm/dL (3.5-5.0); ALKALINE PHOSPHATASE 112 U/L (50-136); ANION GAP 9 mmol/L (7-16); AST,SGOT 126 U/L (15-37); BILIRUBIN,TOTAL 0.9 mg/dL (0.0-1.0); BLOOD UREA NITROGEN 7 mg/dL (7-17); CALCIUM 8.9 mg/dL (8.4-10.2); CARBON DIOXIDE 28 mmol/L (22-30); CHLORIDE 97 mmol/L (98-107); CREATININE, serum 0.43 (0.52-1.25); GLUCOSE 344 mg/dL (74-106); POTASSIUM 3.9 mmol/L (3.4-5.0); SODIUM 134 mmol/L (137-145)
[2020-10-30 14:11] LABS: TROPONIN-I < 0.012 ng/mL (0.000-0.035)
[2020-10-30 14:55] LABS: LIPASE 17088 U/L (23-300)
[2020-10-30] MEDS ORDERED: ORENCIA CL125 MG/1 M SQ (18:59)
[2020-10-30 20:03] VITALS: BP 110/56; PULSE 76; TEMP 98.6
[2020-10-30 23:53] VITALS: BP 125/77; PULSE 95; TEMP 98.3
[2020-10-31 04:12] VITALS: BP 134/62; PULSE 77; TEMP 98.3
[2020-10-31 07:43] LABS: CHOLESTEROL RISK RATIO 4.9
[2020-10-31 08:24] VITALS: BP 123/75; PULSE 80; TEMP 98.1
[2020-10-31 10:20] LABS: COLLECTION METHOD CATHETER
[2020-10-31 10:38] LABS: AMORPHOUS CRYSTAL Present /uL; MUCOUS Present /lpf; PH 5 (5-8); URINE APPEARANCE Turbid; URINE BACTERIA None Seen /hpf; URINE BILIRUBIN Negative (NEGATIVE); URINE BLOOD Negative (NEGATIVE); URINE COLOR Amber; URINE GLUCOSE 1+ (NEGATIVE); URINE KETONE Trace (NEGATIVE); URINE LEUKOCYTE ESTERASE Negative (NEGATIVE); URINE NITRATE Negative (NEGATIVE); URINE PROTEIN(semi-quant) 1+ (NEGATIVE); URINE UROBILINOGEN Negative (NEGATIVE)
[2020-10-31 11:05] LABS: BASO % 0.6 % (0.0-2.0); EOS # 0.2 (0.0-0.7); EOS % 4.1 % (0-4.0); GRAN # 3.8 (1.4-6.5); GRAN % 70.6 % (42.2-75.2); HEMATOCRIT 44.3 % (37.0-47.0); HEMOGLOBIN 13.5 g/dl (12.5-16.0); LYMPH # 0.9 (1.2-3.4); LYMPH % 16.8 % (20.0-51.0); MEAN CELL VOLUME 94 fl (80.0-100.0); MEAN CORPUSCULAR HEMOGLOBIN 29 pg (27.0-31.0); MEAN CORPUSCULAR HGB CONC 31 g/dl (33.0-37.0); MEAN PLATELET VOLUME 12.1 fl (7.4-10.4); MONO # 0.4 (0.1-0.6); MONO % 7.7 % (1.7-9.3); PLATELET COUNT 207 K/mm3 (130-400); RED BLOOD COUNT 4.73 M/mm3 (4.10-5.30); REDCELL DISTRIBUTION WIDTH-CV 15.5 % (11.5-14.5)
[2020-10-31 11:09] LABS: ALBUMIN 3.8 gm/dL (3.5-5.0); BILIRUBIN,TOTAL 0.4 mg/dL (0.0-1.0); CALCIUM 8.6 mg/dL (8.4-10.2); CREATININE, serum 0.41 (0.52-1.25); POTASSIUM 3.7 mmol/L (3.4-5.0); TOTAL PROTEIN 6.8 gm/dL (6.4-8.2)
[2020-10-31 12:15] VITALS: BP 109/58; PULSE 75; TEMP 98.1
[2020-10-31 16:17] VITALS: BP 113/62; PULSE 85; TEMP 98.1
[2020-10-31] MEDS ORDERED: MYRBETR50MG PO (18:40)
[2020-10-31] MEDS ORDERED: GLUCOPHAGE XR500 M1 PO (18:41)
[2020-10-31 21:26] VITALS: BP 134/75; PULSE 74; TEMP 98.3
[2020-10-31 23:53] VITALS: BP 129/43; PULSE 80; TEMP 98.4
[2020-11-01 04:09] VITALS: BP 130/69; PULSE 85; TEMP 97.9
[2020-11-01 07:30] LABS: BASO % 0.6 % (0.0-2.0); EOS # 0.3 (0.0-0.7); EOS % 5.3 % (0-4.0); GRAN # 3.1 (1.4-6.5); GRAN % 64.7 % (42.2-75.2); HEMATOCRIT 42.4 % (37.0-47.0); LYMPH % 21.4 % (20.0-51.0); MEAN CELL VOLUME 92 fl (80.0-100.0); MEAN CORPUSCULAR HEMOGLOBIN 28 pg (27.0-31.0); MEAN CORPUSCULAR HGB CONC 31 g/dl (33.0-37.0); MEAN PLATELET VOLUME 11.4 fl (7.4-10.4); MONO # 0.4 (0.1-0.6); MONO % 7.8 % (1.7-9.3); PLATELET COUNT 201 K/mm3 (130-400); RED BLOOD COUNT 4.61 M/mm3 (4.10-5.30); REDCELL DISTRIBUTION WIDTH-CV 15.5 % (11.5-14.5)
[2020-11-01 07:43] LABS: ALBUMIN 3.5 gm/dL (3.5-5.0); BILIRUBIN,TOTAL 0.5 mg/dL (0.0-1.0); CALCIUM 8.6 mg/dL (8.4-10.2); CREATININE, serum 0.39 (0.52-1.25); POTASSIUM 3.4 mmol/L (3.4-5.0); TOTAL PROTEIN 6.5 gm/dL (6.4-8.2)
[2020-11-01 08:38] VITALS: BP 113/65; PULSE 74; TEMP 98.2
[2020-11-01 12:20] VITALS: BP 118/64; PULSE 73; TEMP 98
[2020-11-01 15:53] VITALS: BP 114/55; PULSE 89; TEMP 98.1
[2020-11-01 19:35] VITALS: BP 120/62; PULSE 70; TEMP 98.5
[2020-11-02 00:09] VITALS: BP 123/61; PULSE 68; TEMP 98
[2020-11-02 04:02] VITALS: BP 112/56; PULSE 72; TEMP 98.5
[2020-11-02 07:13] LABS: BASO % 0.7 % (0.0-2.0); EOS # 0.2 (0.0-0.7); EOS % 5.3 % (0-4.0); GRAN # 2.9 (1.4-6.5); HEMATOCRIT 41.2 % (37.0-47.0); HEMOGLOBIN 12.9 g/dl (12.5-16.0); LYMPH # 0.8 (1.2-3.4); MEAN CELL VOLUME 91 fl (80.0-100.0); MEAN CORPUSCULAR HEMOGLOBIN 29 pg (27.0-31.0); MEAN CORPUSCULAR HGB CONC 31 g/dl (33.0-37.0); MEAN PLATELET VOLUME 11.8 fl (7.4-10.4); MONO # 0.3 (0.1-0.6); MONO % 7.8 % (1.7-9.3); PLATELET COUNT 201 K/mm3 (130-400); RED BLOOD COUNT 4.53 M/mm3 (4.10-5.30); REDCELL DISTRIBUTION WIDTH-CV 15.1 % (11.5-14.5)
[2020-11-02 07:49] LABS: ALBUMIN 3.5 gm/dL (3.5-5.0); BILIRUBIN,TOTAL 0.5 mg/dL (0.0-1.0); CALCIUM 8.5 mg/dL (8.4-10.2); CREATININE, serum 0.38 (0.52-1.25); POTASSIUM 3.4 mmol/L (3.4-5.0); TOTAL PROTEIN 6.5 gm/dL (6.4-8.2)
[2020-11-02 08:12] VITALS: BP 116/62; PULSE 72; TEMP 98.2
[2020-11-02 11:49] VITALS: BP 133/66; PULSE 72; TEMP 97.9
[2020-11-02 16:13] VITALS: BP 121/53; PULSE 66; TEMP 97.7
[2020-11-02 20:27] VITALS: BP 122/65; PULSE 75; TEMP 98.3
[2020-11-03 00:55] VITALS: BP 144/57; PULSE 82; TEMP 97.9
[2020-11-03 04:23] VITALS: BP 135/63; PULSE 72; TEMP 98
[2020-11-03 06:18] LABS: EOS # 0.3 (0.0-0.7); EOS % 6.4 % (0-4.0); GRAN # 2.2 (1.4-6.5); GRAN % 57.5 % (42.2-75.2); HEMOGLOBIN 12.6 g/dl (12.5-16.0); LYMPH % 24.7 % (20.0-51.0); MEAN CELL VOLUME 92 fl (80.0-100.0); MEAN CORPUSCULAR HEMOGLOBIN 29 pg (27.0-31.0); MEAN CORPUSCULAR HGB CONC 32 g/dl (33.0-37.0); MEAN PLATELET VOLUME 10.6 fl (7.4-10.4); MONO # 0.4 (0.1-0.6); MONO % 10.1 % (1.7-9.3); PLATELET COUNT 192 K/mm3 (130-400); RED BLOOD COUNT 4.34 M/mm3 (4.10-5.30); REDCELL DISTRIBUTION WIDTH-CV 15.3 % (11.5-14.5)
[2020-11-03 06:35] LABS: ALANINE AMINOTRANSFERASE 49 U/L (4-34); ALBUMIN 3.5 gm/dL (3.5-5.0); ALKALINE PHOSPHATASE 61 U/L (50-136); ANION GAP 6 mmol/L (7-16); AST,SGOT 72 U/L (15-37); BILIRUBIN,TOTAL 0.4 mg/dL (0.0-1.0); CALCIUM 8.6 mg/dL (8.4-10.2); CARBON DIOXIDE 31 mmol/L (22-30); CHLORIDE 102 mmol/L (98-107); CREATININE, serum 0.43 (0.52-1.25); GLUCOSE 183 mg/dL (74-106); POTASSIUM 3.5 mmol/L (3.4-5.0); SODIUM 139 mmol/L (137-145); TOTAL PROTEIN 6.4 gm/dL (6.4-8.2)
[2020-11-03 06:38] LABS: BLOOD UREA NITROGEN < 2 mg/dL (7-17)
[2020-11-03 08:19] VITALS: BP 120/63; PULSE 70; TEMP 98.3
[2020-11-03 12:57] VITALS: BP 111/55; PULSE 70; TEMP 98.4
[2020-11-03] MEDS ORDERED: LEADER CLE17 GM/Dose PO (14:31)
[2020-11-03] MEDS ORDERED: PROTONIX 40MG T40 MG PO (14:32)
== END 2020-11-03 16:20 | disposition home or self-care (01) | DRG 439 ==
LOC: COL.ER 12:26 → MEDICAL 17:38
PROVIDERS: Internal Medicine Gastroenterology; Physician Assistant; ADMIT Internal Medicine
PROC: 0DB78ZX Excision of Stomach, Pylorus, Via Natural or Artificial Opening Endoscopic, Diagnostic (ICD-10-PCS; 2020-11-02)
PROC: 0DB38ZX Excision of Lower Esophagus, Via Natural or Artificial Opening Endoscopic, Diagnostic (ICD-10-PCS; principal; 2020-11-02 09:30)
DX: K85.90 Acute pancreatitis without necrosis or infection, unspecified (principal); J96.11 Chronic respiratory failure with hypoxia; I50.22 Chronic systolic (congestive) heart failure; E11.65 Type 2 diabetes mellitus with hyperglycemia; I11.0 Hypertensive heart disease with heart failure; N28.9 Disorder of kidney and ureter, unspecified; G89.29 Other chronic pain; M54.9 Dorsalgia, unspecified; E66.01 Morbid (severe) obesity due to excess calories; K59.00 Constipation, unspecified; R16.0 Hepatomegaly, not elsewhere classified; K76.0 Fatty (change of) liver, not elsewhere classified; K20.0 Eosinophilic esophagitis; G47.33 Obstructive sleep apnea (adult) (pediatric); M06.9 Rheumatoid arthritis, unspecified; M19.90 Unspecified osteoarthritis, unspecified site; F32.9 Major depressive disorder, single episode, unspecified; Z96.643 Presence of artificial hip joint, bilateral; Z96.652 Presence of left artificial knee joint; Z90.710 Acquired absence of both cervix and uterus; Z90.89 Acquired absence of other organs; Z90.721 Acquired absence of ovaries, unilateral; Z79.82 Long term (current) use of aspirin; Z87.891 Personal history of nicotine dependence
CPT/HCPCS: 99223-AI; 99232-AI; 99239; C9113; J0456; J0696; J1650; J1815; J1885; J2270; J2405; J2704; J7030; J7050; Q9967

== ENCOUNTER 2020-11-21 09:00 | Outpatient (RCR) | payer MEDICARE, OTHER ==
[~2020-11-21 09:00] MED LIST changes: +GLUCOPHAGE XR500 M1 PO; +LEADER CLE17 GM/Dose PO; +MYRBETR50MG PO; +ORENCIA CL125 MG/1 M SQ; +PROTONIX 40MG T40 MG PO
== END 2020-11-24 | disposition still patient (30) ==
LOC: WSPT
DX: M17.11 Unilateral primary osteoarthritis, right knee (principal); Z96.651 Presence of right artificial knee joint

== ENCOUNTER 2020-12-02 12:45 | Outpatient (RCR) | payer MEDICARE, OTHER | END 2020-12-02 13:45 | disposition home or self-care (01) | LOC: WSPT 12:45 | DX: M25.561 Pain in right knee (principal) ==

== ENCOUNTER 2020-12-06 07:54 | Day surgery (SDC) | payer MEDICARE, OTHER ==
[~2020-12-06] VITALS: Ht 165.1 cm; Wt 139.7 kg
[2020-12-06] VITALS (11 sets, daily range): BP systolic 114–151; BP diastolic 57–80; PULSE 69–101; TEMP 97.9–98.4
[2020-12-06] MEDS ORDERED: TOUJEO300 U/ML SQ (08:46)
[2020-12-06] MEDS ORDERED: ADULT MULTIVIT1 EACH PO (08:47)
[2020-12-06] MEDS ORDERED: PRIL40 PO (08:47)
[2020-12-06] MEDS ORDERED: ORENCIA CL125 MG/1 M SQ (08:47)
[2020-12-06] MEDS ORDERED: OXYGEN (08:51)
--- NOTE | 2020-12-06 12:40 | NUR ---
Patient is back to room from surgery via bed. Oriented to room. No other changes at this time. She is having nausea, explained will have to wait until she added to the room before I can pull her medication. No other changes at this time. Call light within reach.
[2020-12-07 03:02] VITALS: BP 129/71; PULSE 69; TEMP 97.9
--- NOTE | 2020-12-07 05:43 | NUR ---
Rested through the night without incident. Minimal pain. Ambulated in room last night. Needs met. Call light wi reach.
[2020-12-07 07:19] VITALS: BP 135/69; PULSE 73; TEMP 97.8
[2020-12-07] MEDS ORDERED: NORCO 325 MG-51 TAB PO (08:18)
--- NOTE | 2020-12-07 10:20 | NUR ---
Patient is discharging home. Discharge instructions discussed with patient. No questions verbalized. INT discontinued. Explained her prescription has been sent to the pharmacy to [facility]. Explained when follow up appointment is. Copies of discharge instructions sent with patient. No questions verbalized. Patient will call when ready to be walked out.
--- NOTE | 2020-12-07 10:24 | NUR ---
MARCELLE met with the patient and her , Ming (ph#[phone]), to discuss discharge plan. The patient lives in [place] with her . She reports independence with ADLs and has a cane, walker, and home oxygen from [facility]. The patient's PCP is Dr. Moiz Patricio and she receives her medications from [facility]. The patient reports no difficulties obtaining her meds. She then stated that she just does not get the ones that are too expensive. She reports that they are usually inhalers and she realized that she really does not need them. MARCELLE informed her about talking to her PCP, [place], and prescription assistance from [facility]. The patient verbalized understanding. The patient plans to return home with her upon discharge. No additional needs at this time. *Discharge plan: home with *
== END 2020-12-07 11:00 | disposition home or self-care (01) ==
LOC: SDCO 07:54 → SURG 12:46 → SDCO 12-07 11:00
DX: K80.10 Calculus of gallbladder with chronic cholecystitis without obstruction (principal); K75.81 Nonalcoholic steatohepatitis (NASH); I25.10 Atherosclerotic heart disease of native coronary artery without angina pectoris; I11.0 Hypertensive heart disease with heart failure; I50.20 Unspecified systolic (congestive) heart failure; E78.5 Hyperlipidemia, unspecified; E11.42 Type 2 diabetes mellitus with diabetic polyneuropathy; G47.33 Obstructive sleep apnea (adult) (pediatric); K21.9 Gastro-esophageal reflux disease without esophagitis; M19.90 Unspecified osteoarthritis, unspecified site; M79.7 Fibromyalgia; M79.605 Pain in left leg; M79.604 Pain in right leg; F17.210 Nicotine dependence, cigarettes, uncomplicated; Z20.822 Contact with and (suspected) exposure to COVID-19; Z79.84 Long term (current) use of oral hypoglycemic drugs; Z79.899 Other long term (current) drug therapy; Z99.89 Dependence on other enabling machines and devices
CPT/HCPCS: OP; J0690; J1100; J1815; J2405; J2704; J3010; J7120; Q9967

== ENCOUNTER 2020-12-20 09:00 | Day surgery (SDC) | payer MEDICARE, OTHER ==
[~2020-12-20] VITALS: Ht 165.1 cm; Wt 138.1 kg
[~2020-12-20 09:00] MED LIST changes: +ADULT MULTIVIT1 EACH PO; +PRIL40 PO; +TOUJEO300 U/ML SQ
[2020-12-20 09:32] VITALS: BP 134/90; PULSE 71; TEMP 98.3
[2020-12-20 11:30] VITALS: BP 116/57; PULSE 69; TEMP 98.7
--- NOTE | 2020-12-20 11:30 | NUR ---
The patient arrived back to [place] [facility] from the endoscopy suite at this time. The patient ambulated from the cart to the recliner in her room with the stand by assistance of two nurses and appeared to tolerate the activity well. Post procedure vital signs were started at this time. The patient agrees to try some grape juice at this time. is at her bedside at this time. Call light is within reach. Will continue to monitor the patient.
[2020-12-20 11:45] VITALS: BP 108/63; PULSE 68
--- NOTE | 2020-12-20 11:45 | NUR ---
The patient appears to be tolerating the juice well. The patient's oxygen was weaned to 1L at this time. The patient's remains at her bedside. Will continue to monitor the patient.
[2020-12-20 12:00] VITALS: BP 109/71; PULSE 68
--- NOTE | 2020-12-20 12:00 | NUR ---
The patient was weaned off oxygen and is on room air and appears to be tolerating it well. Vital signs remain stable.
--- NOTE | 2020-12-20 12:10 | NUR ---
The patient's IV was INT'd and she ambulated to the bathroom with the use of her cane and escorted by her . The patient appeared to tolerate the activity well. The nurse instructed the patient to get dressed after she is done in the bathroom and notify the nurse when she is ready to review her discharge instrutions.
--- NOTE | 2020-12-20 12:25 | NUR ---
Discharge instructions were reviewed with the patient and her at this time. They both verbalized understanding and have no questions for the nurse at this time. The patient's IV to her right hand was removed and a pressure dressing was applied to the site. The patient is dressed and ready to be escorted out.
--- NOTE | 2020-12-20 12:35 | NUR ---
The patient was escorted out via wheelchair to a private vehicle by JORJE Raines. The patient's belongings and discharge paperwork were sent with her. The patient's is present to drive her home.
== END 2020-12-20 12:35 | disposition home or self-care (01) ==
LOC: SDCO 09:00
DX: K51.40 Inflammatory polyps of colon without complications (principal); K62.1 Rectal polyp; R19.4 Change in bowel habit; R19.7 Diarrhea, unspecified; K76.0 Fatty (change of) liver, not elsewhere classified; K85.90 Acute pancreatitis without necrosis or infection, unspecified; K64.0 First degree hemorrhoids; I10 Essential (primary) hypertension; I25.10 Atherosclerotic heart disease of native coronary artery without angina pectoris; I50.9 Heart failure, unspecified; E78.5 Hyperlipidemia, unspecified; K21.9 Gastro-esophageal reflux disease without esophagitis; M19.90 Unspecified osteoarthritis, unspecified site; M54.9 Dorsalgia, unspecified; G89.29 Other chronic pain; M79.7 Fibromyalgia; E11.42 Type 2 diabetes mellitus with diabetic polyneuropathy; Z99.89 Dependence on other enabling machines and devices; Z20.822 Contact with and (suspected) exposure to COVID-19; Z79.84 Long term (current) use of oral hypoglycemic drugs; Z79.82 Long term (current) use of aspirin
CPT/HCPCS: J2704; J7030

== ENCOUNTER → 2020-12-23 | Outpatient (CLI) | payer MEDICARE, OTHER | LOC: MC.RAD 09:20 | DX: Z12.31 Encounter for screening mammogram for malignant neoplasm of breast (principal) ==

== ENCOUNTER 2021-04-28 08:15 | Outpatient (RCR) | payer MEDICARE, OTHER | END 2021-05-01 | disposition home or self-care (01) | LOC: WSPT | DX: Z98.890 Other specified postprocedural states (principal) ==

== ENCOUNTER 2021-05-18 08:00 | Outpatient (RCR) | payer MEDICARE, OTHER | END 2021-05-18 11:05 | disposition home or self-care (01) | LOC: WSPT 08:00 | DX: Z96.651 Presence of right artificial knee joint (principal) ==

== ENCOUNTER → 2021-05-24 | Outpatient (CLI) | payer MEDICARE, OTHER | LOC: COL.RAD 13:05 | DX: N28.1 Cyst of kidney, acquired (principal) ==

== ENCOUNTER → 2021-07-05 | Outpatient (CLI) | payer MEDICARE, OTHER | LOC: MHCPAIN 08:20 | DX: M47.812 Spondylosis without myelopathy or radiculopathy, cervical region (principal); M54.2 Cervicalgia; M54.12 Radiculopathy, cervical region; G44.86 Cervicogenic headache | CPT/HCPCS: G0463 ==

== ENCOUNTER → 2021-07-13 | Outpatient (CLI) | payer MEDICARE, OTHER | LOC: MHCPAIN 11:04 | DX: M47.812 Spondylosis without myelopathy or radiculopathy, cervical region (principal); M54.2 Cervicalgia; M54.12 Radiculopathy, cervical region | CPT/HCPCS: J1100; Q9967 ==

== ENCOUNTER → 2021-08-01 | Outpatient (CLI) | payer MEDICARE, OTHER | LOC: MHCPAIN 10:14 | DX: M47.892 Other spondylosis, cervical region (principal); M54.12 Radiculopathy, cervical region; M54.6 Pain in thoracic spine | CPT/HCPCS: G0463 ==

== ENCOUNTER → 2022-01-09 | Outpatient (CLI) | payer MEDICARE, OTHER | LOC: MC.RAD 09:45 | DX: Z12.31 Encounter for screening mammogram for malignant neoplasm of breast (principal) ==